=== PATIENT | female | born 1935 | race Caucasian/White ===

== ENCOUNTER 2016-10-17 14:33 | Inpatient (IN) | payer OTHER ==
[~2016-10-17] VITALS: Ht 152.4 cm; Wt 65.0 kg
[~2016-10-17 14:33] MED LIST: RELAFEN500 M1 PO
[2016-10-17 15:57] LABS: EOSINOPHIL (%) 0.6 % (0-5); HEMATOCRIT 38.2 % (36.0-46.0); IMMATURE GRANULOCYTE (%) 0.3 % (0.0-0.7); INSTRUMENT ABS NEUTROPHIL CT 1.6 K/uL; LYMPHOCYTE COUNT 1.5 K/uL (1.0-2.8); MCH 28.2 PG (29.0-34.0); MCHC 33.5 G/DL (30.0-36.0); MCV 84.1 FL (83-99); MONOCYTE COUNT 0.5 K/uL (0-0.8); NEUTROPHIL (%) 43.8 % (45-76); NEUTROPHIL COUNT 1.6 K/uL (1.8-6.4); PLATELET COUNT 194 K/uL (156-360); RBC DIS.WIDTH-SD 39.6 % (39-53); RED BLOOD COUNT 4.54 M/uL (3.80-5.20); WHITE BLOOD COUNT 3.6 K/uL (4.1-10.2)
[2016-10-17 16:05] LABS: INTER. NORMALIZED RATIO 1.1; PROTHROMBIN TIME 10.9 (9.2-11.2)
[2016-10-17 16:06] LABS: CHLORIDE 107 mEq/L (99-109); POTASSIUM 4.1 mEq/L (3.7-5.4); SODIUM 142 mEq/L (136-147)
[2016-10-17 16:07] LABS: GLUCOSE 105 mg/dL (70-99)
[2016-10-17 16:09] LABS: ANION GAP 9 MEQ/L (2-14)
[2016-10-17 16:11] LABS: GFR ESTIMATE (CALCULATED) > 59 mL/min/
[2016-10-17 16:12] LABS: UREA NITROGEN (BUN) 21 mg/dL (9-23)
[2016-10-17 16:17] LABS: ADD MIUA? YES; BILIRUBIN NEGATIVE; BLOOD NEGATIVE; COLOR STRAW ((YELLOW)); GLUCOSE (STRIP) NEGATIVE; KETONES NEGATIVE; LEUKOCYTES SMALL; NITRITE NEGATIVE; PROTEIN (STRIP) NEGATIVE; SPECIFIC GRAVITY 1.006 (1.000-1.030); UROBILINOGEN 0.2 MG/DL (0.2-1.0)
[2016-10-17 16:20] LABS: TROP-I INTERPRETATION NEGATIVE; TROPONIN-I < 0.01 ng/mL (0.0-0.30)
[2016-10-17 16:29] LABS: BACTERIA NONE SEEN /HPF; EPITHELIAL CELLS RARE /HPF; MUCUS TRACE /LPF; RED BLOOD CELLS 0-5 /HPF (0-5); UCUL ADDED? NO
[2016-10-17 16:42] LABS: HDL CHOLESTEROL 39 MG/DL (Desirable>=50); LDL CHOLESTEROL 112 mg/dL (Desirable<100); NON-HDL CHOLESTEROL 154 mg/dL (Desirable<160); TOTAL CHOLESTEROL 193 mg/dL (Desirable<200); TRIGLYCERIDES 210 MG/DL (Normal: <150)
[2016-10-17] MEDS ORDERED: MICROZIDE12.5 M1 PO (17:15)
[2016-10-17] MEDS ORDERED: XARELTO10 MG PO (17:16)
[2016-10-17] MEDS ORDERED: PRAVACHOL20 MG PO (17:16)
[2016-10-17] MEDS ORDERED: LO-DOSE ASPIRIN81 M2 PO (17:18)
[2016-10-17 19:41] VITALS: BP 138/81
[2016-10-17 20:46] LABS: TROP-I INTERPRETATION NEGATIVE; TROPONIN-I < 0.01 ng/mL (0.0-0.30)
[2016-10-17 23:47] VITALS: BP 117/57
[2016-10-18] VITALS (9 sets, daily range): BP systolic 112–167; BP diastolic 6–91
[2016-10-18 02:33] LABS: TROP-I INTERPRETATION NEGATIVE; TROPONIN-I 0.01 ng/mL (0.0-0.30)
[2016-10-18] MEDS ORDERED: AMLODIPINE BESYL5 MG PO (14:29)
[2016-10-19 00:02] VITALS: BP 124/57
[2016-10-19 03:44] VITALS: BP 122/56
[2016-10-19 07:50] VITALS: BP 136/60
[2016-10-19 07:56] VITALS: BP 132/60
[2016-10-19 11:44] VITALS: BP 137/70
[2016-10-19] MEDS ORDERED: MECLIZINE HCL12.5 M1 PO (12:48)
== END 2016-10-19 14:53 | disposition home or self-care (01) | DRG 312 ==
LOC: EME 14:33 → 5SOUTH 17:04 → EDOF 17:04 → 5SOUTH 19:10
PROVIDERS: Emergency Medicine; Internal Medicine
DX: R55 Syncope and collapse (principal); T50.2X5A Adverse effect of carbonic-anhydrase inhibitors, benzothiadiazides and other diuretics, initial encounter; I10 Essential (primary) hypertension; I45.10 Unspecified right bundle-branch block; M79.605 Pain in left leg; G62.9 Polyneuropathy, unspecified; Z86.718 Personal history of other venous thrombosis and embolism; Z86.73 Personal history of transient ischemic attack (TIA), and cerebral infarction without residual deficits
CPT/HCPCS: 70450; 70551; 71020; 80048; 80061; 81003; 84484; 85025; 85610; 93005; 93306; 93880; 99281; 99285